=== PATIENT | male | born 1995 | race Caucasian/White ===

== ENCOUNTER → 2020-08-15 | Emergency (ER) | payer BC ==
[~2020-08-15] VITALS: Ht 172.7 cm; Wt 64.7 kg
[~2020-08-15] MED LIST: CYCL-394 PO; acetaminophen 325mg tablet PO ONE; ketorolac trometh. 30mg/ml inj. IM ONE
[2020-08-15 03:54] VITALS: BP 125/77
== END | disposition home or self-care (01) ==
LOC: ER 00:14
DX: S23.3XXA Sprain of ligaments of thoracic spine, initial encounter (principal); Z88.0 Allergy status to penicillin; X58.XXXA Exposure to other specified factors, initial encounter; Y93.89 Activity, other specified; Y92.89 Other specified places as the place of occurrence of the external cause; Y99.8 Other external cause status
CPT/HCPCS: 96372; 99283; J1885